=== PATIENT | male | born 1970 | race Caucasian/White ===

== ENCOUNTER 2017-04-16 09:27 | Inpatient (IN) | payer OTHER ==
[2017-04-16 11:38] VITALS: BMI 20.7
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
[2017-04-16] MEDS ORDERED: MAGNESIUM HYDROX 2400MG/30ML ORAL SUSPENSION 30 ML CUP PO PRN (15:13)
[2017-04-16] MEDS ORDERED: MAG HYDROX/AL HYDROX/SIMETH 30 ML UNIT-DOSE CUP PO PRN (15:13)
[2017-04-16] MEDS ORDERED: guaiFENesin/D-METHORPHAN HB 10 ML UNIT-DOSE CUPS PO PRN (15:13)
[2017-04-16] MEDS ORDERED: MAGNESIUM CITRATE 300 ML BOTTLE PO PRN (15:13)
[2017-04-16] MEDS ORDERED: MENTHOL/PHENOL 1 EACH UD MM PRN (15:13)
[2017-04-16] MEDS ORDERED: NICOTINE POLACRILEX 4 MG GUM BUC PRN (15:13)
[2017-04-16] MEDS ORDERED: P-EPHED 60MG/TRIPROLIDI 2.5MG TABLET PO PRN (15:13)
[2017-04-16] MEDS ORDERED: ACETAMINOPHEN 325 MG TABLET (FP) PO PRN (15:13)
[2017-04-16] MEDS ORDERED: MAGNESIUM CITRATE 300 ML BOTTLE PO ONE (15:22)
[2017-04-16] MEDS ORDERED: METHADONE HCL 10 MG TABLET (FOR DETOX USE ONLY) PO ONE ×2 (15:23→23:00)
[2017-04-16] MEDS: diazePAM 5 MG TABLET PO PRN ×2 (16:39→22:26)
[2017-04-16] MEDS: NICOTINE 21 MG/24 HOURS TOPICAL PATCH TD SCH (16:51)
[2017-04-16] MEDS: DOCUSATE SODIUM 100 MG CAPSULE (FP) PO SCH (22:26)
[2017-04-16] MEDS: THIAMINE HCL 100 MG TABLET (FP) PO SCH (22:26)
[2017-04-16 23:05] LABS: URINE APPEARANCE CLEAR; URINE BILIRUBIN NEGATIVE (NEGATIVE); URINE COLOR AMBER; URINE GLUCOSE (UA) NEGATIVE (NEGATIVE); URINE KETONE TRACE (NEGATIVE); URINE LEUK ESTERASE NEGATIVE (NEGATIVE); URINE NITRITE NEGATIVE (NEGATIVE); URINE UROBILINOGEN 4.0 E.U/dl mg/dL (0.2-1.0)
[2017-04-16 23:13] LABS: URINE BLOOD 2+ (NEGATIVE); URINE PROTEIN 2+ (NEGATIVE)
[2017-04-16 23:19] LABS: URINE MUCUS RARE; URINE RBC 72 /hpf (0-3); URINE WBC 1 /hpf (3-5)
[2017-04-17] MEDS: diazePAM 5 MG TABLET PO PRN ×2 (04:12→16:49)
[2017-04-17] MEDS: DOCUSATE SODIUM 100 MG CAPSULE (FP) PO SCH ×3 (07:35→23:08)
[2017-04-17] MEDS: LOPERAMIDE HCL 2 MG CAPSULE PO PRN ×2 (08:45→17:07)
[2017-04-17] MEDS: IBUPROFEN 400 MG TABLET (FP) PO PRN ×2 (09:32→17:09)
[2017-04-17 09:57] LABS: HIV 1 & 2 AB NEGATIVE; HIV 1 AGp24 NEGATIVE
[2017-04-17] MEDS ORDERED: METHADONE HCL 10 MG TABLET (FOR DETOX USE ONLY) PO ONE (10:00)
--- NOTE | 2017-04-17 10:00 | PN ---
S CIWA - CIWA Score Nausea/Vomitin Muscle Tremors: 3 Anxiety: 3 Agitation: 3 Paroxysmal Sweats: 2 Orientation: 0-Oriented Tacttile Disturbances: 1-Very Mild Itch/Numbness Auditory Disturbances: 1-Very Mild Visual Disturbances: 1-Very Mild Sensitivity Headache: 2-Mild CIWA-Ar Total Score: 19 BHS COWS - Scale Resting Pulse: 1= [place] 81-100 Sweatin=Flushed/Facial Moisture Restless Observation: 3= Extraneous Movement Pupil Size: 1= Pupils >than Normal Bone or Joint Aches: 2= Severe Diffuse Aches Runny Nose/ Eye Tearin= Runny Nose/Eyes GI Upset > 30mins: 2= Nausea/Diarrhea Tremor Observation of Outstretched Hands: 2= Slight Tremor Visible Yawning Observation: 1= 1-2x During Session Anxiety or Irritability: 2=Irritable/Anxious Goose Flesh Skin: 0=Smooth Skin COWS Score: 18 BHS Progress Note (SOAP) Subjective: ALERT,IRRITABLE,ANXIOUS,INTERRUPTED SLEEP,TREMOR,POOR HYGIENE,WITH ODOR Objective: 04/17/17 09:58 Vital Signs Temperature 98.1 F 04/17/17 06:24 Pulse Rate 85 04/17/17 06:24 Respiratory Rate 18 04/17/17 06:24 Blood Pressure 126/72 04/17/17 06:24 O2 Sat by Pulse Oximetry (%) EKG NSR 64/MIN NO CHEST PAIN,NO SOB,NO DIZZINESS Laboratory Last Values Urine Color Liya 04/16/17 19:05 Urine Appearance Clear 04/16/17 19:05 Urine pH 5.0 (5.0-8.0) 04/16/17 19:05 Ur Specific [place] >= 1.030 (1.005-1.025) H 04/16/17 19:05 Urine Protein 2+ (NEGATIVE) H 04/16/17 19:05 Urine Glucose (UA) Negative (NEGATIVE) 04/16/17 19:05 Urine Ketones Trace (NEGATIVE) H 04/16/17 19:05 Urine Blood 2+ (NEGATIVE) H 04/16/17 19:05 Urine Nitrite Negative (NEGATIVE) 04/16/17 19:05 Urine Bilirubin Negative (NEGATIVE) 04/16/17 19:05 Urine Urobilinogen 4.0 e.u/dl mg/dL (0.2-1.0) 04/16/17 19:05 Ur Leukocyte Esterase Negative (NEGATIVE) 04/16/17 19:05 Urine RBC 72 /hpf (0-3) 04/16/17 19:05 Urine WBC 1 /hpf (3-5) 04/16/17 19:05 Ur Epithelial Cells Rare /hpf (FEW) 04/16/17 19:05 Urine Mucus Rare 04/16/17 19:05 HIV 1&2 Antibody Screen Negative 04/16/17 14:20 HIV P24 Antigen Negative 04/16/17 14:20 LAB PENDING Assessment: 04/17/17 09:59 WITHDRAWAL SYMPTOM Plan: CONTINUE DETOX
[2017-04-17 10:09] LABS: MCH 28.3 pg (25.7-33.7); MCHC 33.4 g/dl (32.0-35.9); MEAN CELL VOLUME 84.8 fl (80-96); MEAN PLT VOLUME 7.4 fl (7.5-11.1); PLATELET COUNT 365 K/MM3 (134-434); RDW 14.6 % (11.9-15.9); WHITE BLOOD COUNT 12.2 K/mm3 (4.0-10.0)
[2017-04-17 10:25] LABS: ALBUMIN 2.4 g/dl (3.4-5.0); ALK PHOS 109 U/L (45-117); ANION GAP 7 (8-16); BILIRUBIN,TOTAL 0.5 mg/dL (0.2-1.0); CALCIUM 7.9 mg/dL (8.5-10.1); CO2 30 mmol/L (21-32); CREATININE 0.7 mg/dL (0.7-1.3); GLUCOSE,RANDOM 101 mg/dL (74-106); SGOT/AST 32 U/L (15-37); SGPT/ALT 25 U/L (12-78); TOT PROT 5.8 g/dl (6.4-8.2)
[2017-04-17] MEDS: NICOTINE 21 MG/24 HOURS TOPICAL PATCH TD SCH (11:00)
[2017-04-17] MEDS: PRENATAL VITAMINS W/ FOLIC ACID TABLET (FP) PO SCH (11:02)
--- NOTE | 2017-04-17 17:10 | EKG ---
Test Reason : Blood Pressure : / mmHG Vent. Rate : 064 BPM Atrial Rate : 064 BPM P-R Int : 114 ms QRS Dur : 076 ms QT Int : 388 ms P-R-T Axes : 073 054 022 degrees QTc Int : 400 ms NORMAL SINUS RHYTHM NONSPECIFIC ST ABNORMALITY ABNORMAL ECG NO PREVIOUS ECGS AVAILABLE [facility] Confirmed by RAFAL CHANG MD ([id number]) on 04/17/2017 5:10:41 PM Referred By: Confirmed By:RAFAL CHANG MD
[2017-04-17] MEDS ORDERED: RANITIDINE HCL 150 MG TABLET (FP) PO ONE (19:30)
--- NOTE | 2017-04-17 21:22 | PN ---
S CIWA - CIWA Score Nausea/Vomitin Muscle Tremors: 3 Anxiety: 4-Mod. Anxious/Guarded Agitation: 3 Paroxysmal Sweats: 2 Orientation: 1-Uncertain about Date Tacttile Disturbances: 1-Very Mild Itch/Numbness Auditory Disturbances: 0-None Visual Disturbances: 0-None Headache: 1-Very Mild CIWA-Ar Total Score: 17 S Progress Note (SOAP) Subjective: Pt. was admitted on 02/14/17. He stated he did not disclose that he was also abusing alcohol and has a history of alcohol dependence. He states he drinks 2 six packs of beer daily and he last drank on 02/13/17. Objective: 04/17/17 22:06 Vital Signs Last Vital Signs Temp Pulse Resp BP Pulse Ox 100.2 F H 91 H 18 155/79 04/17/17 21:54 04/17/17 21:54 04/17/17 21:54 04/17/17 21:54 Anxious and tremulous Assessment: 04/17/17 22:05 Withdrawal symptoms; see CIWA Plan: Librium protocol initiated. Valium discontinued.
[2017-04-17] MEDS ORDERED: chlordiazePOXIDE HCL 25 MG CAPSULE PO ONE (21:27)
[2017-04-17] MEDS: chlordiazePOXIDE HCL 25 MG CAPSULE PO SCH (22:05)
[2017-04-17] MEDS: THIAMINE HCL 100 MG TABLET (FP) PO SCH (22:05)
[2017-04-17] MEDS: POTASSIUM CHLORIDE TABS 20 MEQ TABLET.ER (FP) PO SCH (22:06)
[2017-04-17] MEDS: cloNIDine HCL 0.1 MG TABLET PO SCH (22:06)
[2017-04-18] MEDS: diphenhydrAMINE HCL 50 MG CAPSULE PO PRN (02:16)
[2017-04-18] MEDS: chlordiazePOXIDE HCL 25 MG CAPSULE PO PRN ×4 (02:16→23:57)
[2017-04-18] MEDS: DOCUSATE SODIUM 100 MG CAPSULE (FP) PO SCH ×3 (06:08→22:08)
[2017-04-18] MEDS: chlordiazePOXIDE HCL 25 MG CAPSULE PO SCH ×4 (06:09→22:08)
[2017-04-18] MEDS ORDERED: METHADONE HCL 5 MG TABLET (FOR DETOX USE ONLY) PO ONE (10:00)
[2017-04-18] MEDS: RANITIDINE HCL 150 MG TABLET (FP) PO SCH (10:14)
[2017-04-18] MEDS: cloNIDine HCL 0.1 MG TABLET PO SCH ×2 (10:14→22:08)
[2017-04-18] MEDS: POTASSIUM CHLORIDE TABS 20 MEQ TABLET.ER (FP) PO SCH ×2 (10:14→22:08)
[2017-04-18] MEDS: PRENATAL VITAMINS W/ FOLIC ACID TABLET (FP) PO SCH (10:14)
[2017-04-18] MEDS: NICOTINE 21 MG/24 HOURS TOPICAL PATCH TD SCH (10:18)
--- NOTE | 2017-04-18 11:22 | PN ---
BHS Progress Note (SOAP) Subjective: interrupted sleep, sweats, shakes, bowel problems , doesn't feel well. Objective: 04/18/17 11:17 Vital Signs Temperature 96.3 F L 04/18/17 06:47 Pulse Rate 69 04/18/17 06:47 Respiratory Rate 18 04/18/17 06:47 Blood Pressure 116/72 04/18/17 06:47 O2 Sat by Pulse Oximetry (%) Laboratory Tests 04/16/17 04/16/17 04/17/17 14:20 19:05 06:00 WBC 12.2 H D RBC 3.74 L Hgb 10.6 L D Hct 31.7 L D MCV 84.8 MCH 28.3 MCHC 33.4 RDW 14.6 Plt Count 365 D MPV 7.4 L Sodium Potassium Chloride Carbon Dioxide Anion Gap BUN Creatinine Creat Clearance w eGFR Random Glucose Calcium Total Bilirubin AST ALT Alkaline Phosphatase Total Protein Albumin Urine Color Liya Urine Appearance Clear Urine pH 5.0 Ur Specific [place] >= 1.030 H Urine Protein 2+ H Urine Glucose (UA) Negative Urine Ketones Trace H Urine Blood 2+ H Urine Nitrite Negative Urine Bilirubin Negative Urine Urobilinogen 4.0 e.u/dl Ur Leukocyte Esterase Negative Urine RBC 72 Urine WBC 1 Ur Epithelial Cells Rare Urine Mucus Rare RPR Titer HIV 1&2 Antibody Screen Negative HIV P24 Antigen Negative 04/17/17 04/17/17 06:00 06:00 WBC RBC Hgb Hct MCV MCH MCHC RDW Plt Count MPV Sodium 134 L Potassium 4.0 Chloride 97 L Carbon Dioxide 30 Anion Gap 7 L BUN 16 Creatinine 0.7 D Creat Clearance w eGFR > 60 Random Glucose 101 D Calcium 7.9 L Total Bilirubin 0.5 D AST 32 D ALT 25 D Alkaline Phosphatase 109 D Total Protein 5.8 L Albumin 2.4 L D Urine Color Urine Appearance Urine pH Ur Specific [place] Urine Protein Urine Glucose (UA) Urine Ketones Urine Blood Urine Nitrite Urine Bilirubin Urine Urobilinogen Ur Leukocyte Esterase Urine RBC Urine WBC Ur Epithelial Cells Urine Mucus RPR Titer Nonreactive HIV 1&2 Antibody Screen HIV P24 Antigen pt aox3 ambulating in nad 04/18/17 11:21 Assessment: 04/18/17 11:17 withdrawal sx's bowel motility problems elevated wbc #- 12.7 anemia -10.6/31.7 hematuria- 72 rbc's temp 100.2 x 1 04/18/17 11:18 04/18/17 11:21 04/18/17 11:21 Plan: cont. detox increase fluids repeat u/a repeat cbc f/up temps
[2017-04-18] MEDS: CYCLOBENZAPRINE HCL 10 MG TABLET (FP) PO PRN ×2 (14:23→22:08)
[2017-04-18] MEDS ORDERED: SODIUM PHOSPHATE/NA BIPHOS 133 ML ENEMA PR ONE (18:15)
[2017-04-18] MEDS: THIAMINE HCL 100 MG TABLET (FP) PO SCH (22:09)
[2017-04-19] MEDS: hydrOXYzine PAMOATE 25 MG CAPSULE (FP) PO PRN (00:54)
[2017-04-19] MEDS: chlordiazePOXIDE HCL 25 MG CAPSULE PO SCH ×3 (06:08→17:52)
[2017-04-19] MEDS: DOCUSATE SODIUM 100 MG CAPSULE (FP) PO SCH ×3 (06:08→22:23)
[2017-04-19] MEDS ORDERED: METHADONE HCL 5 MG TABLET (FOR DETOX USE ONLY) PO ONE (10:00)
[2017-04-19 10:06] LABS: BASOPHIL 0.3 % (0-2.0); EOSINOPHIL 0.2 % (0-4.5); MCH 28.1 pg (25.7-33.7); MCHC 33.4 g/dl (32.0-35.9); MEAN PLT VOLUME 6.8 fl (7.5-11.1); NEUTROPHILS 72.2 % (42.8-82.8); PLATELET COUNT 405 K/MM3 (134-434); RDW 14.9 % (11.9-15.9); WHITE BLOOD COUNT 13.8 K/mm3 (4.0-10.0)
[2017-04-19] MEDS: RANITIDINE HCL 150 MG TABLET (FP) PO SCH (10:49)
[2017-04-19] MEDS: cloNIDine HCL 0.1 MG TABLET PO SCH ×2 (10:49→22:23)
[2017-04-19] MEDS: PRENATAL VITAMINS W/ FOLIC ACID TABLET (FP) PO SCH (10:49)
[2017-04-19] MEDS: POTASSIUM CHLORIDE TABS 20 MEQ TABLET.ER (FP) PO SCH ×2 (10:49→22:23)
[2017-04-19] MEDS: CYCLOBENZAPRINE HCL 10 MG TABLET (FP) PO PRN (10:49)
[2017-04-19] MEDS: NICOTINE 21 MG/24 HOURS TOPICAL PATCH TD SCH (10:50)
--- NOTE | 2017-04-19 10:56 | PN ---
S Progress Note (SOAP) Subjective: ALERT,IRRITABLE,ABDOMINAL PAIN,CONSTIPATED,PAIN IN THE BODY AND BACK Objective: 04/19/17 10:54 Vital Signs Temperature 97.5 F L 04/19/17 06:38 Pulse Rate 108 H 04/19/17 06:38 Respiratory Rate 20 04/19/17 06:38 Blood Pressure 131/83 04/19/17 06:38 O2 Sat by Pulse Oximetry (%) Laboratory Last Values WBC 13.8 K/mm3 (4.0-10.0) H 04/18/17 06:30 RBC 4.24 M/mm3 (4.00-5.60) 04/18/17 06:30 Hgb 11.9 GM/dL (11.7-16.9) D 04/18/17 06:30 Hct 35.6 % (35.4-49) 04/18/17 06:30 MCV 84.0 fl (80-96) 04/18/17 06:30 MCH 28.1 pg (25.7-33.7) 04/18/17 06:30 MCHC 33.4 g/dl (32.0-35.9) 04/18/17 06:30 RDW 14.9 % (11.9-15.9) 04/18/17 06:30 Plt Count 405 K/MM3 (134-434) 04/18/17 06:30 MPV 6.8 fl (7.5-11.1) L 04/18/17 06:30 Neutrophils % 72.2 % (42.8-82.8) D 04/18/17 06:30 Lymphocytes % 12.0 % (8-40) D 04/18/17 06:30 Monocytes % 15.3 % (3.8-10.2) H 04/18/17 06:30 Eosinophils % 0.2 % (0-4.5) D 04/18/17 06:30 Basophils % 0.3 % (0-2.0) 04/18/17 06:30 Sodium 134 mmol/L (136-145) L 04/17/17 06:00 Potassium 4.0 mmol/L (3.5-5.1) 04/17/17 06:00 Chloride 97 mmol/L (98-107) L 04/17/17 06:00 Carbon Dioxide 30 mmol/L (21-32) 04/17/17 06:00 Anion Gap 7 (8-16) L 04/17/17 06:00 BUN 16 mg/dL (7-18) 04/17/17 06:00 Creatinine 0.7 mg/dL (0.7-1.3) D 04/17/17 06:00 Creat Clearance w eGFR > 60 (>60) 04/17/17 06:00 Random Glucose 101 mg/dL (74-106) D 04/17/17 06:00 Calcium 7.9 mg/dL (8.5-10.1) L 04/17/17 06:00 Total Bilirubin 0.5 mg/dL (0.2-1.0) D 04/17/17 06:00 AST 32 U/L (15-37) D 04/17/17 06:00 ALT 25 U/L (12-78) D 04/17/17 06:00 Alkaline Phosphatase 109 U/L (45-117) D 04/17/17 06:00 Total Protein 5.8 g/dl (6.4-8.2) L 04/17/17 06:00 Albumin 2.4 g/dl (3.4-5.0) L D 04/17/17 06:00 Urine Color Liya 04/16/17 19:05 Urine Appearance Clear 04/16/17 19:05 Urine pH 5.0 (5.0-8.0) 04/16/17 19:05 Ur Specific [place] >= 1.030 (1.005-1.025) H 04/16/17 19:05 Urine Protein 2+ (NEGATIVE) H 04/16/17 19:05 Urine Glucose (UA) Negative (NEGATIVE) 04/16/17 19:05 Urine Ketones Trace (NEGATIVE) H 04/16/17 19:05 Urine Blood 2+ (NEGATIVE) H 04/16/17 19:05 Urine Nitrite Negative (NEGATIVE) 04/16/17 19:05 Urine Bilirubin Negative (NEGATIVE) 04/16/17 19:05 Urine Urobilinogen 4.0 e.u/dl mg/dL (0.2-1.0) 04/16/17 19:05 Ur Leukocyte Esterase Negative (NEGATIVE) 04/16/17 19:05 Urine RBC 72 /hpf (0-3) 04/16/17 19:05 Urine WBC 1 /hpf (3-5) 04/16/17 19:05 Ur Epithelial Cells Rare /hpf (FEW) 04/16/17 19:05 Urine Mucus Rare 04/16/17 19:05 RPR Titer Nonreactive (NONREACTIVE) 04/17/17 06:00 HIV 1&2 Antibody Screen Negative 04/16/17 14:20 HIV P24 Antigen Negative 04/16/17 14:20 Assessment: 04/19/17 10:55 WITHDRAWAL SYMPTOM Plan: CONTINUE DETOX,ENCOURAGE ORAL FLUID,KUB TODAY,MIRALAX PO
[2017-04-19] MEDS: POLYETHYLENE GLYCOL 3350 119 GM BTL PO SCH (12:19)
[2017-04-19] MEDS: chlordiazePOXIDE 5 MG CAPSULE PO SCH (22:22)
[2017-04-19] MEDS: THIAMINE HCL 100 MG TABLET (FP) PO SCH (22:23)
[2017-04-19] MEDS: diphenhydrAMINE HCL 50 MG CAPSULE PO PRN (22:24)
[2017-04-20] MEDS: chlordiazePOXIDE 5 MG CAPSULE PO SCH ×3 (06:11→17:13)
[2017-04-20] MEDS: DOCUSATE SODIUM 100 MG CAPSULE (FP) PO SCH ×3 (06:14→22:45)
[2017-04-20] MEDS ORDERED: SODIUM PHOSPHATE/NA BIPHOS 133 ML ENEMA PR ONE (09:06)
[2017-04-20] MEDS ORDERED: BISACODYL 10 MG SUPP.RECT RC ONE (09:06)
[2017-04-20] MEDS ORDERED: METHADONE HCL 10 MG TABLET (FOR DETOX USE ONLY) PO ONE (10:00)
[2017-04-20 10:22] LABS: MCHC 33.4 g/dl (32.0-35.9); MEAN CELL VOLUME 83.9 fl (80-96); MEAN PLT VOLUME 6.6 fl (7.5-11.1); PLATELET COUNT 430 K/MM3 (134-434); RDW 15.2 % (11.9-15.9); WHITE BLOOD COUNT 15.7 K/mm3 (4.0-10.0)
--- NOTE | 2017-04-20 11:07 | PN ---
BHS Progress Note (SOAP) Subjective: ALERT,FEEL WEAK,PAIN IN THE BODY AND BACK,NO VOMITING Objective: 04/20/17 11:03 Vital Signs Temperature 97.9 F 04/20/17 10:00 Pulse Rate 117 H 04/20/17 10:00 Respiratory Rate 18 04/20/17 10:00 Blood Pressure 96/74 04/20/17 10:00 O2 Sat by Pulse Oximetry (%) Laboratory Last Values WBC 15.7 K/mm3 (4.0-10.0) H 04/20/17 06:30 RBC 4.31 M/mm3 (4.00-5.60) 04/20/17 06:30 Hgb 12.1 GM/dL (11.7-16.9) 04/20/17 06:30 Hct 36.2 % (35.4-49) 04/20/17 06:30 MCV 83.9 fl (80-96) 04/20/17 06:30 MCH 28.0 pg (25.7-33.7) 04/20/17 06:30 MCHC 33.4 g/dl (32.0-35.9) 04/20/17 06:30 RDW 15.2 % (11.9-15.9) 04/20/17 06:30 Plt Count 430 K/MM3 (134-434) 04/20/17 06:30 MPV 6.6 fl (7.5-11.1) L 04/20/17 06:30 Neutrophils % 72.2 % (42.8-82.8) D 04/18/17 06:30 Lymphocytes % 12.0 % (8-40) D 04/18/17 06:30 Monocytes % 15.3 % (3.8-10.2) H 04/18/17 06:30 Eosinophils % 0.2 % (0-4.5) D 04/18/17 06:30 Basophils % 0.3 % (0-2.0) 04/18/17 06:30 Sodium 134 mmol/L (136-145) L 04/17/17 06:00 Potassium 4.0 mmol/L (3.5-5.1) 04/17/17 06:00 Chloride 97 mmol/L (98-107) L 04/17/17 06:00 Carbon Dioxide 30 mmol/L (21-32) 04/17/17 06:00 Anion Gap 7 (8-16) L 04/17/17 06:00 BUN 16 mg/dL (7-18) 04/17/17 06:00 Creatinine 0.7 mg/dL (0.7-1.3) D 04/17/17 06:00 Creat Clearance w eGFR > 60 (>60) 04/17/17 06:00 Random Glucose 101 mg/dL (74-106) D 04/17/17 06:00 Calcium 7.9 mg/dL (8.5-10.1) L 04/17/17 06:00 Total Bilirubin 0.5 mg/dL (0.2-1.0) D 04/17/17 06:00 AST 32 U/L (15-37) D 04/17/17 06:00 ALT 25 U/L (12-78) D 04/17/17 06:00 Alkaline Phosphatase 109 U/L (45-117) D 04/17/17 06:00 Total Protein 5.8 g/dl (6.4-8.2) L 04/17/17 06:00 Albumin 2.4 g/dl (3.4-5.0) L D 04/17/17 06:00 Urine Color Liya 04/16/17 19:05 Urine Appearance Clear 04/16/17 19:05 Urine pH 5.0 (5.0-8.0) 04/16/17 19:05 Ur Specific [place] >= 1.030 (1.005-1.025) H 04/16/17 19:05 Urine Protein 2+ (NEGATIVE) H 04/16/17 19:05 Urine Glucose (UA) Negative (NEGATIVE) 04/16/17 19:05 Urine Ketones Trace (NEGATIVE) H 04/16/17 19:05 Urine Blood 2+ (NEGATIVE) H 04/16/17 19:05 Urine Nitrite Negative (NEGATIVE) 04/16/17 19:05 Urine Bilirubin Negative (NEGATIVE) 04/16/17 19:05 Urine Urobilinogen 4.0 e.u/dl mg/dL (0.2-1.0) 04/16/17 19:05 Ur Leukocyte Esterase Negative (NEGATIVE) 04/16/17 19:05 Urine RBC 72 /hpf (0-3) 04/16/17 19:05 Urine WBC 1 /hpf (3-5) 04/16/17 19:05 Ur Epithelial Cells Rare /hpf (FEW) 04/16/17 19:05 Urine Mucus Rare 04/16/17 19:05 RPR Titer Nonreactive (NONREACTIVE) 04/17/17 06:00 HIV 1&2 Antibody Screen Negative 04/16/17 14:20 HIV P24 Antigen Negative 04/16/17 14:20 REPEAT UA PENDING Assessment: 04/20/17 11:05 CONTINUE DETOX 04/20/17 11:06 WITHDRAWAL SYMPTOM Plan: CONTINUE DETOX,ENCOURAGE ORAL FLUID,CHEST XRAY TODAY
[2017-04-20] MEDS: cloNIDine HCL 0.1 MG TABLET PO SCH ×2 (11:30→22:45)
[2017-04-20] MEDS: POLYETHYLENE GLYCOL 3350 119 GM BTL PO SCH (11:30)
[2017-04-20] MEDS: PRENATAL VITAMINS W/ FOLIC ACID TABLET (FP) PO SCH (11:30)
[2017-04-20] MEDS: POTASSIUM CHLORIDE TABS 20 MEQ TABLET.ER (FP) PO SCH ×2 (11:30→22:45)
[2017-04-20] MEDS: RANITIDINE HCL 150 MG TABLET (FP) PO SCH (11:30)
[2017-04-20] MEDS: NICOTINE 21 MG/24 HOURS TOPICAL PATCH TD SCH (11:30)
[2017-04-20 14:12] LABS: URINE APPEARANCE CLEAR; URINE BILIRUBIN NEGATIVE (NEGATIVE); URINE BLOOD NEGATIVE (NEGATIVE); URINE COLOR YELLOW; URINE GLUCOSE (UA) NEGATIVE (NEGATIVE); URINE KETONE NEGATIVE (NEGATIVE); URINE LEUK ESTERASE NEGATIVE (NEGATIVE); URINE NITRITE NEGATIVE (NEGATIVE); URINE PROTEIN NEGATIVE (NEGATIVE)
[2017-04-20] MEDS: chlordiazePOXIDE HCL 25 MG CAPSULE PO PRN (19:55)
[2017-04-20] MEDS: CYCLOBENZAPRINE HCL 10 MG TABLET (FP) PO PRN (22:45)
[2017-04-20] MEDS: chlordiazePOXIDE HCL 10 MG CAPSULE PO SCH (22:45)
[2017-04-20] MEDS: THIAMINE HCL 100 MG TABLET (FP) PO SCH (22:45)
[2017-04-20] MEDS: diphenhydrAMINE HCL 50 MG CAPSULE PO PRN (22:46)
[2017-04-20] MEDS: IBUPROFEN 400 MG TABLET (FP) PO PRN (23:25)
[2017-04-21] MEDS: DOCUSATE SODIUM 100 MG CAPSULE (FP) PO SCH ×3 (05:51→23:00)
[2017-04-21] MEDS: chlordiazePOXIDE HCL 10 MG CAPSULE PO SCH ×3 (05:51→18:14)
[2017-04-21] MEDS ORDERED: METHADONE HCL 5 MG TABLET (FOR DETOX USE ONLY) PO ONE (06:00)
[2017-04-21] MEDS ORDERED: BISACODYL 10 MG SUPP.RECT RC ONE (08:37)
[2017-04-21] MEDS ORDERED: SODIUM PHOSPHATE/NA BIPHOS 133 ML ENEMA PR ONE (08:39)
--- NOTE | 2017-04-21 08:50 | PN ---
S Progress Note (SOAP) Subjective: alert,feel weak,appetite improved,minimal bowel movement Objective: 04/21/17 08:50 Vital Signs Temperature 97.2 F L 04/21/17 06:21 Pulse Rate 79 04/21/17 06:21 Respiratory Rate 18 04/21/17 06:21 Blood Pressure 118/73 04/21/17 06:21 O2 Sat by Pulse Oximetry (%) Assessment: 04/21/17 08:51 withdrawal symptom Plan: encourage oral fluid,fleet enema,dulcolax suppository,repeat cbc,cmp in am
[2017-04-21] MEDS: IBUPROFEN 400 MG TABLET (FP) PO PRN (09:03)
[2017-04-21] MEDS: hydrOXYzine PAMOATE 25 MG CAPSULE (FP) PO PRN (09:04)
[2017-04-21] MEDS: CYCLOBENZAPRINE HCL 10 MG TABLET (FP) PO PRN (09:04)
[2017-04-21] MEDS: cloNIDine HCL 0.1 MG TABLET PO SCH ×2 (11:55→23:00)
[2017-04-21] MEDS: POTASSIUM CHLORIDE TABS 20 MEQ TABLET.ER (FP) PO SCH ×2 (11:55→23:02)
[2017-04-21] MEDS: RANITIDINE HCL 150 MG TABLET (FP) PO SCH (11:56)
[2017-04-21] MEDS: POLYETHYLENE GLYCOL 3350 119 GM BTL PO SCH (11:56)
[2017-04-21] MEDS: NICOTINE 21 MG/24 HOURS TOPICAL PATCH TD SCH (11:56)
[2017-04-21] MEDS: PRENATAL VITAMINS W/ FOLIC ACID TABLET (FP) PO SCH (11:56)
--- NOTE | 2017-04-21 14:23 | PN ---
S Progress Note Note: patient complained of abdominal pain,look pale,diaphoretic, pulse ox is 88 dry lip and mucosa cachecxia lung cleat abdomen soft but distension pain in the lower abdomen tenderness on palpation bowel sound active no calf tenderness impression near syncope hypoxia dehydation abdominal pain r/o diverticulitis r/o sepsis cachexia opioid dependence with withdrawal cocaine dependence treatment o2 by nasal canula 4 l/min evaluation in er spoke with dr thomas transported by [facility]
[2017-04-21] MEDS ORDERED: chlordiazePOXIDE 5 MG CAPSULE ONE (16:53)
[2017-04-21] MEDS: THIAMINE HCL 100 MG TABLET (FP) PO SCH (23:00)
[2017-04-22] MEDS: diphenhydrAMINE HCL 50 MG CAPSULE PO PRN (01:01)
[2017-04-22] MEDS: IBUPROFEN 400 MG TABLET (FP) PO PRN ×2 (01:22→18:06)
[2017-04-22] MEDS: hydrOXYzine PAMOATE 25 MG CAPSULE (FP) PO PRN ×2 (02:30→10:59)
[2017-04-22] MEDS: DOCUSATE SODIUM 100 MG CAPSULE (FP) PO SCH ×4 (07:45→15:45)
[2017-04-22] MEDS: RANITIDINE HCL 150 MG TABLET (FP) PO SCH (10:54)
[2017-04-22] MEDS: cloNIDine HCL 0.1 MG TABLET PO SCH (10:54)
[2017-04-22] MEDS: CYCLOBENZAPRINE HCL 10 MG TABLET (FP) PO PRN ×2 (10:54→18:06)
[2017-04-22] MEDS: PRENATAL VITAMINS W/ FOLIC ACID TABLET (FP) PO SCH (10:54)
[2017-04-22] MEDS: POTASSIUM CHLORIDE TABS 20 MEQ TABLET.ER (FP) PO SCH (10:54)
--- NOTE | 2017-04-22 10:54 | PN ---
S Progress Note (SOAP) Subjective: ALERT,IRRITABLE,ANXIOUS,INTERRUPTED SLEEP,NO ABDOMINAL PAIN,CLEAR FROM [facility] ER TO RETURN FOR CONTINUING CARE HAS BOWEL MOVEMENT MINIMAL Objective: 04/22/17 10:52 Vital Signs Temperature 97.5 F L 04/22/17 10:00 Pulse Rate 128 H 04/22/17 10:00 Respiratory Rate 20 04/22/17 10:00 Blood Pressure 127/74 04/22/17 10:00 O2 Sat by Pulse Oximetry (%) Assessment: 04/22/17 10:54 WITHDRAWAL SYMPTOM Plan: CONTINUE DETOX,DISCHARGE IN AM
[2017-04-22] MEDS ORDERED: BISACODYL 10 MG SUPP.RECT RC ONE (10:56)
[2017-04-22] MEDS: POLYETHYLENE GLYCOL 3350 119 GM BTL PO SCH (10:58)
[2017-04-22] MEDS: NICOTINE 21 MG/24 HOURS TOPICAL PATCH TD SCH (10:58)
[2017-04-22] MEDS ORDERED: SODIUM PHOSPHATE/NA BIPHOS 133 ML ENEMA PR ONE (11:01)
[2017-04-22 17:38] VITALS: BP 115/67; PULSE 122; TEMP 97.7
--- NOTE | 2017-04-22 18:25 | PN ---
S Progress Note Note: alert,no complaining,detox completed,has bowel movement would like to go home discharge,follow up with [facility] as arrangement out patient follow up with [facility]
--- NOTE | 2017-04-22 18:26 | DS ---
[facility] Detox Discharge Summary Admission Date: 04/16/17 Discharge Date: 04/22/17 - History Present History: Cocaine Dependence, Opioid Dependence Additional Comments: follow up with [facility] out patient program as arrangement follow up with [facility] upon discharge Pertinent Past History: constipation weight loss nicotine dependence - Physical Exam Results Vital Signs: Vital Signs Temperature 97.7 F 04/22/17 17:37 Pulse Rate 122 H 04/22/17 17:37 Respiratory Rate 20 04/22/17 17:37 Blood Pressure 115/67 04/22/17 17:37 O2 Sat by Pulse Oximetry (%) Pertinent Admission Physical Exam Findings: withdrawal symptom - Treatment Hospital Course: Detox Protocol Followed, Detoxed Safely, Responded well, Discharged Condition Good Patient has Accepted a Rehab Referral to: declined - Medication Discharge Medications: Ambulatory Orders Acetaminophen [Tylenol] 650 mg PO Q4H 04/21/17 Chlordiazepoxide [Librium -] 10 mg PO Q6HPO 04/21/17 Chlordiazepoxide [Librium -] 25 mg PO Q4H PRN 04/21/17 Clonidine HCl [Catapres -] 0.1 mg PO BID 04/21/17 Cyclobenzaprine HCl [Flexeril -] 10 mg PO TID PRN 04/21/17 Diphenhydramine [Benadryl -] 50 mg PO HS PRN 04/21/17 Docusate Sodium [Colace -] 100 mg PO TID 04/21/17 Guaifenesin Dm [Robitussin Dm] 10 ml PO Q6H PRN 04/21/17 Hydroxyzine Pamoate [Vistaril -] 25 mg PO Q4H PRN 04/21/17 Ibuprofen [Motrin -] 400 mg PO Q6H PRN 04/21/17 Loperamide HCl [Imodium -] 4 mg PO Q6H PRN 04/21/17 Mag Hydrox/Al Hydrox/Simeth [Mylanta *Suspension*] 30 ml PO Q6H PRN 04/21/17 Magnesium Citrate [Citroma -] 300 ml PO Q48H 04/21/17 Magnesium Hydrox 2400MG/30Ml [Milk of Magnesia -] 30 ml PO DAILY PRN 04/21/17 Methadone [Dolophine -] 5 mg PO DAILY 04/21/17 Nicotine Patch [Nicoderm Patch -] 1 patch TD DAILY 04/21/17 Nicotine Polacrilex [Nicorette] 4 mg BC Q2H PRN 04/21/17 P-Ephed 60Mg/Triprolidi 2.5MG [Actifed -] 1 combo PO TID PRN 04/21/17 Polyethylene Glycol 3350 [Miralax (For Daily Use) -] 17 gm PO DAILY PRN Potassium Chloride [K-Dur -] 20 meq PO BID 04/21/17 Ranitidine [Zantac -] 150 mg PO DAILY 04/21/17 Thiamine Mononitrate [Vitamin B-1] 100 mg PO HS 04/21/17 - Diagnosis (1) Constipation Current Visit: Yes Status: Acute (2) Cachexia Current Visit: Yes Status: Acute (3) Cocaine dependence, uncomplicated Current Visit: Yes Status: Acute (4) Nicotine dependence Current Visit: Yes Status: Acute Qualifiers: Nicotine product type: cigarettes Substance use status: in withdrawal Qualified Code(s): F17.213 - Nicotine dependence, cigarettes, with withdrawal (5) PCP abuse Current Visit: Yes Status: Acute (6) Uncomplicated opioid dependence Current Visit: Yes Status: Acute (7) Weight decreased Current Visit: Yes Status: Chronic - AMA Did Patient Leave Against Medical Advice: No
== END 2017-04-22 18:40 | disposition home or self-care (01) | DRG 773 ==
LOC: YASAS 09:27 → Y6N 14:44
PROVIDERS: ADMIT Internal Medicine Addiction Medicine; ATTEND Internal Medicine Addiction Medicine
PROC: HZ2ZZZZ Detoxification Services for Substance Abuse Treatment (ICD-10-PCS; principal; 2017-04-22)
DX: F11.20 Opioid dependence, uncomplicated (principal); F14.20 Cocaine dependence, uncomplicated; F17.213 Nicotine dependence, cigarettes, with withdrawal; F15.10 Other stimulant abuse, uncomplicated; K59.00 Constipation, unspecified; R64 Cachexia; Z68.20 Body mass index [BMI] 20.0-20.9, adult
CPT/HCPCS: 36415; 71010-TC; 74000-TC; 80053; 81003; 81015; 85025; 85027; 86593; 87389; 93005; 93010

== ENCOUNTER 2017-04-21 15:33 | Emergency (ER) | payer OTHER ==
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
[2017-04-21 16:37] VITALS: TEMP 97.7; BMI 20.8
[2017-04-21] MEDS ORDERED: SODIUM PHOSPHATE/NA BIPHOS 133 ML ENEMA PR ONE (17:28)
[2017-04-21] MEDS ORDERED: KETOROLAC TROMETHAMINE 30 MG/1 ML VIAL IVPUSH ONE (17:28)
[2017-04-21 17:36] LABS: BASOPHIL 0.6 % (0-2.0); EOSINOPHIL 0.6 % (0-4.5); MCH 27.2 pg (25.7-33.7); MCHC 32.7 g/dl (32.0-35.9); MEAN CELL VOLUME 83.3 fl (80-96); MEAN PLT VOLUME 6.6 fl (7.5-11.1); NEUTROPHILS 68.6 % (42.8-82.8); PLATELET COUNT 447 K/MM3 (134-434); RDW 14.8 % (11.9-15.9)
[2017-04-21] MEDS ORDERED: KETOROLAC TROMETHAMINE 60 MG/2 ML VIAL IM ONE (17:42)
[2017-04-21] MEDS ORDERED: KETOROLAC TROMETHAMINE 60 MG/2 ML VIAL ONE (17:43)
[2017-04-21 17:46] LABS: URINE APPEARANCE SLCLOUDY; URINE BLOOD NEGATIVE (NEGATIVE); URINE COLOR AMBER; URINE GLUCOSE (UA) NEGATIVE (NEGATIVE); URINE KETONE TRACE (NEGATIVE); URINE LEUK ESTERASE NEGATIVE (NEGATIVE); URINE NITRITE NEGATIVE (NEGATIVE); URINE PROTEIN NEGATIVE (NEGATIVE); URINE UROBILINOGEN 4.0 E.U/dl mg/dL (0.2-1.0)
[2017-04-21 18:16] LABS: ALBUMIN 2.5 g/dl (3.4-5.0); ALK PHOS 138 U/L (45-117); ANION GAP 7 (8-16); BILIRUBIN,TOTAL 0.4 mg/dL (0.2-1.0); CALCIUM 8.9 mg/dL (8.5-10.1); CO2 29 mmol/L (21-32); CREATININE 0.7 mg/dL (0.7-1.3); GLUCOSE,RANDOM 91 mg/dL (74-106); SGOT/AST 35 U/L (15-37); SGPT/ALT 51 U/L (12-78); TOT PROT 6.5 g/dl (6.4-8.2)
--- NOTE | 2017-04-21 18:21 | PDOC ---
Attending Attestation - Resident Resident Name: Mariam Piedra - ED Attending Attestation I have performed the following: I have examined & evaluated the patient, The case was reviewed & discussed with the resident, I agree w/resident's findings & plan, Exceptions are as noted - HPI HPI: 04/21/17 18:18 47-year-old male with history of heroin abuse presents to the ER with constipation (no formed bowel movement in several days), genital and rectal discomfort, lower abdominal pain and leukocytosis of 15,000 obtained during current admission. Patient's currently undergoing detoxification as inpatient at [facility]. She was recently started on methadone. - Physicial Exam PE: 04/21/17 18:19 Patient is awake and alert, anxious appearing. Serial abdominal exams reveal minimal suprapubic discomfort only. There is no guarding or rebound. Bowel sounds are decreased in all 4 quadrants. There is no distention in the abdomen is not tympanitic. - Medical Decision Making 04/21/17 18:20 47-year-old male with history of opioid abuse presents with constipation. KUB reveals large amount of retained stool throughout the large intestine. CBC reveals decreased leukocyte count 14 with a normal differential. Urinalysis normal reveals microscopic hematuria. We'll administer Toradol IM as well as fleets enema. I do not suspect diverticulitis or SBO or LBO at this time. Will discharge to [facility] for continuation of detox.
[2017-04-21 21:56] VITALS: BP 128/77; PULSE 92
== END 2017-04-21 21:58 | disposition other institution (70) ==
LOC: JER 15:33
PROC: 3E0233Z Introduction of Anti-inflammatory into Muscle, Percutaneous Approach (ICD-10-PCS; principal; 2017-04-21)
DX: K59.09 Other constipation (principal); F11.20 Opioid dependence, uncomplicated; F14.20 Cocaine dependence, uncomplicated; F17.210 Nicotine dependence, cigarettes, uncomplicated
CPT/HCPCS: 36415; 74000-TC; 80053; 81003; 85025; 87086; 96372; 99283-25

== ENCOUNTER 2017-07-09 11:38 | Inpatient (IN) | payer OTHER ==
[2017-07-09 15:15] VITALS: BMI 21.6
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
[2017-07-09] MEDS ORDERED: MAGNESIUM CITRATE 300 ML BOTTLE PO PRN (18:52)
[2017-07-09] MEDS ORDERED: IBUPROFEN 400 MG TABLET (FP) PO PRN (18:52)
[2017-07-09] MEDS ORDERED: LOPERAMIDE HCL 2 MG CAPSULE PO PRN (18:52)
[2017-07-09] MEDS ORDERED: P-EPHED 60MG/TRIPROLIDI 2.5MG TABLET PO PRN (18:52)
[2017-07-09] MEDS ORDERED: MAG HYDROX/AL HYDROX/SIMETH 30 ML UNIT-DOSE CUP PO PRN (18:52)
[2017-07-09] MEDS ORDERED: NICOTINE POLACRILEX 4 MG GUM BC PRN (18:52)
[2017-07-09] MEDS ORDERED: METHADONE HCL 10 MG TABLET (FOR DETOX USE ONLY) PO ONE ×2 (18:52→23:00)
[2017-07-09] MEDS ORDERED: MENTHOL/PHENOL 1 EACH UD MM PRN (18:52)
[2017-07-09] MEDS ORDERED: MAGNESIUM HYDROX 2400MG/30ML ORAL SUSPENSION 30 ML CUP PO PRN (18:52)
[2017-07-09] MEDS ORDERED: guaiFENesin/D-METHORPHAN HB 10 ML UNIT-DOSE CUPS PO PRN (18:52)
[2017-07-09] MEDS: diazePAM 5 MG TABLET PO PRN (19:54)
[2017-07-09] MEDS: BACITRACIN 0.9 GM PACKET TP SCH (22:33)
[2017-07-09] MEDS: THIAMINE HCL 100 MG TABLET (FP) PO SCH (22:35)
[2017-07-09 23:12] LABS: URINE APPEARANCE SLCLOUDY; URINE BILIRUBIN NEGATIVE (NEGATIVE); URINE BLOOD NEGATIVE (NEGATIVE); URINE COLOR AMBER; URINE GLUCOSE (UA) NEGATIVE (NEGATIVE); URINE KETONE TRACE (NEGATIVE); URINE NITRITE NEGATIVE (NEGATIVE); URINE PROTEIN NEGATIVE (NEGATIVE); URINE UROBILINOGEN NEGATIVE mg/dL (0.2-1.0)
[2017-07-09] MEDS: MINERAL OIL/PETROLAT/WATER TOPICAL CREAM 113 GM JAR TP SCH (23:13)
[2017-07-10] MEDS: diazePAM 5 MG TABLET PO PRN ×3 (01:28→20:23)
[2017-07-10] MEDS ORDERED: METHADONE HCL 10 MG TABLET (FOR DETOX USE ONLY) PO ONE (10:00)
[2017-07-10 10:10] LABS: MCH 29.1 pg (25.7-33.7); MCHC 31.5 g/dl (32.0-35.9); MEAN CELL VOLUME 92.2 fl (80-96); MEAN PLT VOLUME 7.3 fl (7.5-11.1); PLATELET COUNT 291 K/MM3 (134-434); RDW 16.3 % (11.9-15.9); WHITE BLOOD COUNT 13.1 K/mm3 (4.0-10.0)
--- NOTE | 2017-07-10 10:23 | PN ---
[facility] COWS - Scale Resting Pulse: 1= ND 81-100 Sweatin= Chills/Flushing Restless Observation: 3= Extraneous Movement Pupil Size: 2= Moderately Dilated Bone or Joint Aches: 4=Acute Joint/Muscle Pain Runny Nose/ Eye Tearin= Nasal Congestion GI Upset > 30mins: 1= Stomach Cramp Tremor Observation of Outstretched Hands: 1= Tremor Larose, Not Seen Yawning Observation: 2= >3x During Session Anxiety or Irritability: 2=Irritable/Anxious Goose Flesh Skin: 0=Smooth Skin COWS Score: 18 BHS Progress Note (SOAP) Subjective: ANXIETY,FATIGUE,DROWSY-'I HAVE NOT SLEPT FOR DAYS" Objective: 07/10/17 10:22 Laboratory Last Values WBC 13.1 K/mm3 (4.0-10.0) H 07/10/17 07:00 RBC 4.44 M/mm3 (4.00-5.60) 07/10/17 07:00 Hgb 12.9 GM/dL (11.7-16.9) 07/10/17 07:00 Hct 40.9 % (35.4-49) 07/10/17 07:00 MCV 92.2 fl (80-96) 07/10/17 07:00 MCH 29.1 pg (25.7-33.7) 07/10/17 07:00 MCHC 31.5 g/dl (32.0-35.9) L 07/10/17 07:00 RDW 16.3 % (11.9-15.9) H D 07/10/17 07:00 Plt Count 291 K/MM3 (134-434) D 07/10/17 07:00 MPV 7.3 fl (7.5-11.1) L D 07/10/17 07:00 Urine Color Liya 07/09/17 23:00 Urine Appearance Slcloudy 07/09/17 23:00 Urine pH 5.0 (5.0-8.0) 07/09/17 23:00 Urine Protein Negative (NEGATIVE) 07/09/17 23:00 Urine Glucose (UA) Negative (NEGATIVE) 07/09/17 23:00 Urine Ketones Trace (NEGATIVE) H 07/09/17 23:00 Urine Blood Negative (NEGATIVE) 07/09/17 23:00 Urine Nitrite Negative (NEGATIVE) 07/09/17 23:00 Urine Bilirubin Negative (NEGATIVE) 07/09/17 23:00 Urine Urobilinogen Negative mg/dL (0.2-1.0) 07/09/17 23:00 Vital Signs Temperature 98.7 F 07/10/17 09:54 Pulse Rate 97 H 07/10/17 09:54 Respiratory Rate 18 07/10/17 09:54 Blood Pressure 139/81 07/10/17 09:54 O2 Sat by Pulse Oximetry (%) Assessment: 07/10/17 10:22 WITHDRAWAL SX Plan: CONTINUE DETOX INCREASE PO FLUIDS.
[2017-07-10] MEDS: PRENATAL VITAMINS W/ FOLIC ACID TABLET (FP) PO SCH (10:25)
[2017-07-10] MEDS: BACITRACIN 0.9 GM PACKET TP SCH ×2 (10:25→22:25)
[2017-07-10] MEDS: NICOTINE 21 MG/24 HOURS TOPICAL PATCH TD SCH (10:26)
[2017-07-10 10:40] LABS: ALBUMIN 2.7 g/dl (3.4-5.0); ALK PHOS 86 U/L (45-117); ANION GAP 9 (8-16); BILIRUBIN,TOTAL 0.2 mg/dL (0.2-1.0); CALCIUM 8.3 mg/dL (8.5-10.1); CO2 27 mmol/L (21-32); CREATININE 0.8 mg/dL (0.7-1.3); GLUCOSE,RANDOM 80 mg/dL (74-106); SGOT/AST 17 U/L (15-37); SGPT/ALT 19 U/L (12-78); TOT PROT 5.8 g/dl (6.4-8.2)
[2017-07-10 10:44] LABS: URINE LEUK ESTERASE Negative (NEGATIVE)
[2017-07-10] MEDS: PSYLLIUM 5.85 GM PACKET PO SCH (14:24)
[2017-07-10] MEDS: ACETAMINOPHEN 325 MG TABLET (FP) PO PRN (14:25)
--- NOTE | 2017-07-10 16:39 | CONSULT ---
[facility] Psychiatric Consult - Data Date of interview: 07/10/17 Admission source: [facility] Identifying data: Patient is approached at bedside for psychiatric interview.He refused." I don't feel like talking to psychiatrists." Nursing staff is made aware.
[2017-07-10] MEDS: THIAMINE HCL 100 MG TABLET (FP) PO SCH (22:25)
[2017-07-10] MEDS: MINERAL OIL/PETROLAT/WATER TOPICAL CREAM 113 GM JAR TP SCH (22:25)
[2017-07-10] MEDS: diphenhydrAMINE HCL 50 MG CAPSULE PO PRN (22:26)
[2017-07-11] MEDS: diazePAM 5 MG TABLET PO PRN ×4 (00:57→22:12)
[2017-07-11] MEDS ORDERED: METHADONE HCL 5 MG TABLET (FOR DETOX USE ONLY) PO ONE (10:00)
[2017-07-11] MEDS: PRENATAL VITAMINS W/ FOLIC ACID TABLET (FP) PO SCH (10:12)
[2017-07-11] MEDS: BACITRACIN 0.9 GM PACKET TP SCH ×2 (10:12→22:12)
[2017-07-11] MEDS: PSYLLIUM 5.85 GM PACKET PO SCH (10:12)
[2017-07-11] MEDS: NICOTINE 21 MG/24 HOURS TOPICAL PATCH TD SCH (10:12)
--- NOTE | 2017-07-11 10:22 | PN ---
BHS COWS - Scale Resting Pulse: 2= PA 101-120 Sweatin= Chills/Flushing Restless Observation: 0= Sits Still Pupil Size: 0= Normal to Room Light Bone or Joint Aches: 4=Acute Joint/Muscle Pain Runny Nose/ Eye Tearin= Nasal Congestion GI Upset > 30mins: 1= Stomach Cramp Tremor Observation of Outstretched Hands: 2= Slight Tremor Visible Yawning Observation: 1= 1-2x During Session Anxiety or Irritability: 2=Irritable/Anxious Goose Flesh Skin: 0=Smooth Skin COWS Score: 14 BHS Progress Note (SOAP) Subjective: ANXIETY,SWEATS,CHILLS, FATIGUE. Objective: 07/11/17 10:22 Vital Signs Temperature 96.8 F L 07/11/17 09:40 Pulse Rate 114 H 07/11/17 09:40 Respiratory Rate 18 07/11/17 09:40 Blood Pressure 139/99 07/11/17 09:40 O2 Sat by Pulse Oximetry (%) Laboratory Last Values WBC 13.1 K/mm3 (4.0-10.0) H 07/10/17 07:00 RBC 4.44 M/mm3 (4.00-5.60) 07/10/17 07:00 Hgb 12.9 GM/dL (11.7-16.9) 07/10/17 07:00 Hct 40.9 % (35.4-49) 07/10/17 07:00 MCV 92.2 fl (80-96) 07/10/17 07:00 MCH 29.1 pg (25.7-33.7) 07/10/17 07:00 MCHC 31.5 g/dl (32.0-35.9) L 07/10/17 07:00 RDW 16.3 % (11.9-15.9) H D 07/10/17 07:00 Plt Count 291 K/MM3 (134-434) D 07/10/17 07:00 MPV 7.3 fl (7.5-11.1) L D 07/10/17 07:00 Sodium 141 mmol/L (136-145) 07/10/17 07:00 Potassium 4.3 mmol/L (3.5-5.1) D 07/10/17 07:00 Chloride 105 mmol/L (98-107) 07/10/17 07:00 Carbon Dioxide 27 mmol/L (21-32) 07/10/17 07:00 Anion Gap 9 (8-16) 07/10/17 07:00 BUN 15 mg/dL (7-18) 07/10/17 07:00 Creatinine 0.8 mg/dL (0.7-1.3) 07/10/17 07:00 Creat Clearance w eGFR > 60 (>60) 07/10/17 07:00 Random Glucose 80 mg/dL (74-106) 07/10/17 07:00 Calcium 8.3 mg/dL (8.5-10.1) L 07/10/17 07:00 Total Bilirubin 0.2 mg/dL (0.2-1.0) D 07/10/17 07:00 AST 17 U/L (15-37) D 07/10/17 07:00 ALT 19 U/L (12-78) D 07/10/17 07:00 Alkaline Phosphatase 86 U/L (45-117) D 07/10/17 07:00 Total Protein 5.8 g/dl (6.4-8.2) L 07/10/17 07:00 Albumin 2.7 g/dl (3.4-5.0) L 07/10/17 07:00 Urine Color Liya 07/09/17 23:00 Urine Appearance Slcloudy 07/09/17 23:00 Urine pH 5.0 (5.0-8.0) 07/09/17 23:00 Ur Specific [place] 1.025 (1.005-1.025) 07/09/17 23:00 Urine Protein Negative (NEGATIVE) 07/09/17 23:00 Urine Glucose (UA) Negative (NEGATIVE) 07/09/17 23:00 Urine Ketones Trace (NEGATIVE) H 07/09/17 23:00 Urine Blood Negative (NEGATIVE) 07/09/17 23:00 Urine Nitrite Negative (NEGATIVE) 07/09/17 23:00 Urine Bilirubin Negative (NEGATIVE) 07/09/17 23:00 Urine Urobilinogen Negative mg/dL (0.2-1.0) 07/09/17 23:00 Ur Leukocyte Esterase Negative (NEGATIVE) 07/09/17 23:00 RPR Titer Nonreactive (NONREACTIVE) 07/10/17 07:00 Hepatitis C Antibody <0.1 s/co ratio (0.0-0.9) 07/09/17 07:00 Assessment: 07/11/17 10:22 WITHDRAWAL SX Plan: CONTINUE DETOX
--- NOTE | 2017-07-11 10:42 | EKG ---
Test Reason : Blood Pressure : / mmHG Vent. Rate : 077 BPM Atrial Rate : 077 BPM P-R Int : 122 ms QRS Dur : 084 ms QT Int : 388 ms P-R-T Axes : 064 057 042 degrees QTc Int : 439 ms NORMAL SINUS RHYTHM NORMAL ECG WHEN COMPARED WITH ECG OF 16-APR-2017 16:49, NO SIGNIFICANT CHANGE WAS FOUND Confirmed by SUMIT MONDRAGON MD ([id number]) on 07/11/2017 10:41:51 AM Referred By: Confirmed By:SUMIT MONDRAGON MD
[2017-07-11] MEDS: THIAMINE HCL 100 MG TABLET (FP) PO SCH (22:12)
[2017-07-11] MEDS: MINERAL OIL/PETROLAT/WATER TOPICAL CREAM 113 GM JAR TP SCH (22:13)
[2017-07-12] MEDS: diazePAM 5 MG TABLET PO PRN ×2 (04:03→11:28)
[2017-07-12] MEDS ORDERED: METHADONE HCL 5 MG TABLET (FOR DETOX USE ONLY) PO ONE (10:00)
--- NOTE | 2017-07-12 10:06 | PN ---
BHS Progress Note (SOAP) Subjective: C/O TREMOR, SWEATS,IRRITABILITY,ANXIETY,INTERMITTENT SLEEP. Objective: 07/12/17 10:05 Vital Signs Temperature 97.1 F L 07/12/17 09:36 Pulse Rate 110 H 07/12/17 09:36 Respiratory Rate 18 07/12/17 09:36 Blood Pressure 131/93 07/12/17 09:36 O2 Sat by Pulse Oximetry (%) Laboratory Last Values WBC 13.1 K/mm3 (4.0-10.0) H 07/10/17 07:00 RBC 4.44 M/mm3 (4.00-5.60) 07/10/17 07:00 Hgb 12.9 GM/dL (11.7-16.9) 07/10/17 07:00 Hct 40.9 % (35.4-49) 07/10/17 07:00 MCV 92.2 fl (80-96) 07/10/17 07:00 MCH 29.1 pg (25.7-33.7) 07/10/17 07:00 MCHC 31.5 g/dl (32.0-35.9) L 07/10/17 07:00 RDW 16.3 % (11.9-15.9) H D 07/10/17 07:00 Plt Count 291 K/MM3 (134-434) D 07/10/17 07:00 MPV 7.3 fl (7.5-11.1) L D 07/10/17 07:00 Sodium 141 mmol/L (136-145) 07/10/17 07:00 Potassium 4.3 mmol/L (3.5-5.1) D 07/10/17 07:00 Chloride 105 mmol/L (98-107) 07/10/17 07:00 Carbon Dioxide 27 mmol/L (21-32) 07/10/17 07:00 Anion Gap 9 (8-16) 07/10/17 07:00 BUN 15 mg/dL (7-18) 07/10/17 07:00 Creatinine 0.8 mg/dL (0.7-1.3) 07/10/17 07:00 Creat Clearance w eGFR > 60 (>60) 07/10/17 07:00 Random Glucose 80 mg/dL (74-106) 07/10/17 07:00 Calcium 8.3 mg/dL (8.5-10.1) L 07/10/17 07:00 Total Bilirubin 0.2 mg/dL (0.2-1.0) D 07/10/17 07:00 AST 17 U/L (15-37) D 07/10/17 07:00 ALT 19 U/L (12-78) D 07/10/17 07:00 Alkaline Phosphatase 86 U/L (45-117) D 07/10/17 07:00 Total Protein 5.8 g/dl (6.4-8.2) L 07/10/17 07:00 Albumin 2.7 g/dl (3.4-5.0) L 07/10/17 07:00 Urine Color Liya 07/09/17 23:00 Urine Appearance Slcloudy 07/09/17 23:00 Urine pH 5.0 (5.0-8.0) 07/09/17 23:00 Ur Specific [place] 1.025 (1.005-1.025) 07/09/17 23:00 Urine Protein Negative (NEGATIVE) 07/09/17 23:00 Urine Glucose (UA) Negative (NEGATIVE) 07/09/17 23:00 Urine Ketones Trace (NEGATIVE) H 07/09/17 23:00 Urine Blood Negative (NEGATIVE) 07/09/17 23:00 Urine Nitrite Negative (NEGATIVE) 07/09/17 23:00 Urine Bilirubin Negative (NEGATIVE) 07/09/17 23:00 Urine Urobilinogen Negative mg/dL (0.2-1.0) 07/09/17 23:00 Ur Leukocyte Esterase Negative (NEGATIVE) 07/09/17 23:00 RPR Titer Nonreactive (NONREACTIVE) 07/10/17 07:00 Hepatitis C Antibody <0.1 s/co ratio (0.0-0.9) 07/09/17 07:00 Assessment: 07/12/17 10:06 WITHDRAWAL SX Plan: CONTINUE DETOX
[2017-07-12] MEDS: BACITRACIN 0.9 GM PACKET TP SCH ×2 (10:11→22:16)
[2017-07-12] MEDS: PRENATAL VITAMINS W/ FOLIC ACID TABLET (FP) PO SCH (10:11)
[2017-07-12] MEDS: NICOTINE 21 MG/24 HOURS TOPICAL PATCH TD SCH (10:11)
[2017-07-12] MEDS: PSYLLIUM 5.85 GM PACKET PO SCH (10:11)
[2017-07-12] MEDS: ACETAMINOPHEN 325 MG TABLET (FP) PO PRN ×3 (11:28→22:17)
[2017-07-12] MEDS: THIAMINE HCL 100 MG TABLET (FP) PO SCH (22:16)
[2017-07-12] MEDS: diphenhydrAMINE HCL 50 MG CAPSULE PO PRN (22:16)
[2017-07-12] MEDS: MINERAL OIL/PETROLAT/WATER TOPICAL CREAM 113 GM JAR TP SCH (22:46)
[2017-07-13] MEDS: ACETAMINOPHEN 325 MG TABLET (FP) PO PRN (05:12)
[2017-07-13] MEDS ORDERED: METHADONE HCL 10 MG TABLET (FOR DETOX USE ONLY) PO ONE (10:00)
[2017-07-13] MEDS: PRENATAL VITAMINS W/ FOLIC ACID TABLET (FP) PO SCH (10:13)
[2017-07-13] MEDS: BACITRACIN 0.9 GM PACKET TP SCH ×2 (10:13→22:16)
[2017-07-13] MEDS: PSYLLIUM 5.85 GM PACKET PO SCH (10:14)
[2017-07-13] MEDS: NICOTINE 21 MG/24 HOURS TOPICAL PATCH TD SCH (10:14)
--- NOTE | 2017-07-13 12:22 | PN ---
BHS Progress Note (SOAP) Subjective: Tremors, Anxious, H/A, Constipated. Objective: PT. A & O X 3, OBSERVED AMBULATING ON UNIT. NO ACUTE DISTRESS. 07/13/17 12:15 Vital Signs Temperature 97.7 F 07/13/17 09:56 Pulse Rate 94 H 07/13/17 09:56 Respiratory Rate 18 07/13/17 09:56 Blood Pressure 129/79 07/13/17 09:56 O2 Sat by Pulse Oximetry (%) Laboratory Tests 07/09/17 07/09/17 07/10/17 07:00 23:00 07:00 WBC 13.1 H RBC 4.44 Hgb 12.9 Hct 40.9 MCV 92.2 MCH 29.1 MCHC 31.5 L RDW 16.3 H D Plt Count 291 D MPV 7.3 L D Sodium Potassium Chloride Carbon Dioxide Anion Gap BUN Creatinine Creat Clearance w eGFR Random Glucose Calcium Total Bilirubin AST ALT Alkaline Phosphatase Total Protein Albumin Urine Color Liya Urine Appearance Slcloudy Urine pH 5.0 Ur Specific [place] 1.025 Urine Protein Negative Urine Glucose (UA) Negative Urine Ketones Trace H Urine Blood Negative Urine Nitrite Negative Urine Bilirubin Negative Urine Urobilinogen Negative Ur Leukocyte Esterase Negative RPR Titer Hepatitis C Antibody <0.1 07/10/17 07/10/17 07:00 07:00 WBC RBC Hgb Hct MCV MCH MCHC RDW Plt Count MPV Sodium 141 Potassium 4.3 D Chloride 105 Carbon Dioxide 27 Anion Gap 9 BUN 15 Creatinine 0.8 Creat Clearance w eGFR > 60 Random Glucose 80 Calcium 8.3 L Total Bilirubin 0.2 D AST 17 D ALT 19 D Alkaline Phosphatase 86 D Total Protein 5.8 L Albumin 2.7 L Urine Color Urine Appearance Urine pH Ur Specific [place] Urine Protein Urine Glucose (UA) Urine Ketones Urine Blood Urine Nitrite Urine Bilirubin Urine Urobilinogen Ur Leukocyte Esterase RPR Titer Nonreactive Hepatitis C Antibody LABS NOTED. PATIENT HAS HAD ELEVATED WBC LEVELS ON PREVIOUS DETOX ADMISSIONS. 07/13/17 12:18 Assessment: 07/13/17 12:16 WITHDRAWAL SYMPTOMS. Plan: CONTINUE DETOX. PRN MOM FOR CONSTIPATION. INCREASE DAILY PO FLUID INTAKE.
[2017-07-13] MEDS: CYCLOBENZAPRINE HCL 10 MG TABLET (FP) PO PRN ×2 (14:47→22:16)
[2017-07-13] MEDS: hydrOXYzine PAMOATE 50 MG CAPSULE (FP) PO PRN ×2 (14:47→22:16)
[2017-07-13] MEDS: THIAMINE HCL 100 MG TABLET (FP) PO SCH (22:15)
[2017-07-13] MEDS: MINERAL OIL/PETROLAT/WATER TOPICAL CREAM 113 GM JAR TP SCH (22:16)
[2017-07-14] MEDS ORDERED: METHADONE HCL 5 MG TABLET (FOR DETOX USE ONLY) PO ONE (06:00)
[2017-07-14 06:37] VITALS: BP 123/67; PULSE 117; TEMP 97.9
--- NOTE | 2017-07-14 22:11 | DS ---
[facility] Detox Discharge Summary Admission Date: 07/09/17 Discharge Date: 07/14/17 - History Present History: Cocaine Dependence, Opioid Dependence Additional Comments: PATIENT ADVISED TO CONSIDER LOCAL 12-STEP / AA OUTPATIENT SUPPORT GROUPS FOR AFTERCARE. PATIENT WAS DISCHARGED FROM DETOX UNIT IN STABLE MEDICAL CONDITION. Pertinent Past History: Depression, Constipation, Nicotine Dependence. - Physical Exam Results Vital Signs: Vital Signs Temperature 97.9 F 07/14/17 06:36 Pulse Rate 117 H 07/14/17 06:36 Respiratory Rate 18 07/14/17 06:36 Blood Pressure 123/67 07/14/17 06:36 O2 Sat by Pulse Oximetry (%) Pertinent Admission Physical Exam Findings: WITHDRAWAL SYMPTOMS. Laboratory Tests 07/09/17 07/09/17 07/10/17 07:00 23:00 07:00 WBC 13.1 H RBC 4.44 Hgb 12.9 Hct 40.9 MCV 92.2 MCH 29.1 MCHC 31.5 L RDW 16.3 H D Plt Count 291 D MPV 7.3 L D Sodium Potassium Chloride Carbon Dioxide Anion Gap BUN Creatinine Creat Clearance w eGFR Random Glucose Calcium Total Bilirubin AST ALT Alkaline Phosphatase Total Protein Albumin Urine Color Liya Urine Appearance Slcloudy Urine pH 5.0 Ur Specific [place] 1.025 Urine Protein Negative Urine Glucose (UA) Negative Urine Ketones Trace H Urine Blood Negative Urine Nitrite Negative Urine Bilirubin Negative Urine Urobilinogen Negative Ur Leukocyte Esterase Negative RPR Titer Hepatitis C Antibody <0.1 07/10/17 07/10/17 07:00 07:00 WBC RBC Hgb Hct MCV MCH MCHC RDW Plt Count MPV Sodium 141 Potassium 4.3 D Chloride 105 Carbon Dioxide 27 Anion Gap 9 BUN 15 Creatinine 0.8 Creat Clearance w eGFR > 60 Random Glucose 80 Calcium 8.3 L Total Bilirubin 0.2 D AST 17 D ALT 19 D Alkaline Phosphatase 86 D Total Protein 5.8 L Albumin 2.7 L Urine Color Urine Appearance Urine pH Ur Specific [place] Urine Protein Urine Glucose (UA) Urine Ketones Urine Blood Urine Nitrite Urine Bilirubin Urine Urobilinogen Ur Leukocyte Esterase RPR Titer Nonreactive Hepatitis C Antibody LABS NOTED. - Treatment Hospital Course: Detox Protocol Followed, Detoxed Safely, Responded well, Discharged Condition Good Patient has Accepted a Rehab Referral to: NO. PT ADVISED TO CONSIDER LOCAL 12- STEP/AA SUPPORT GROUPS FOR AFTERCARE. - Medication Discharge Medications: Ambulatory Orders NK [No Known Home Medication] 07/09/17 - Diagnosis (1) Cocaine dependence, uncomplicated Status: Acute (2) Nicotine dependence Status: Chronic Qualifiers: Nicotine product type: cigarettes Substance use status: in withdrawal Qualified Code(s): F17.213 - Nicotine dependence, cigarettes, with withdrawal; F17.213 - Nicotine dependence, cigarettes, with withdrawal (3) Uncomplicated opioid dependence Status: Acute (4) Weight decreased Status: Acute (5) Constipation Status: Chronic Qualifiers: Constipation type: slow transit constipation Qualified Code(s): K59.01 - Slow transit constipation; K59.01 - Slow transit constipation (6) Depression (emotion) Status: Suspected Qualifiers: Depression Type: dysthymia Qualified Code(s): F34.1 - Dysthymic disorder; F34.1 - Dysthymic disorder; F34.1 - Dysthymic disorder - AMA Did Patient Leave Against Medical Advice: No
== END 2017-07-14 09:22 | disposition home or self-care (01) | DRG 773 ==
LOC: YASAS 11:38 → Y3N 19:17
PROVIDERS: ADMIT Internal Medicine; ATTEND Internal Medicine
PROC: HZ2ZZZZ Detoxification Services for Substance Abuse Treatment (ICD-10-PCS; principal; 2017-07-09)
DX: F11.23 Opioid dependence with withdrawal (principal); F14.20 Cocaine dependence, uncomplicated; F17.213 Nicotine dependence, cigarettes, with withdrawal; F34.1 Dysthymic disorder; R00.0 Tachycardia, unspecified; K59.01 Slow transit constipation; Z87.898 Personal history of other specified conditions
CPT/HCPCS: 36415; 80053; 81003; 85027; 86593; 86803; 93005; 93010